=== PATIENT | male | born 1990 | race Caucasian/White ===

== ENCOUNTER 2016-09-21 08:49 | Emergency (ER) | payer BC ==
[2016-09-21 09:15] VITALS: BP 106/57
--- NOTE | 2016-09-21 09:24 | UC ---
Throat Pain/Nasal Cyril HPI - HPI Summary HPI Summary: ST, nasal congestion, cough, sinus pressure x 4 days. - History of Current Complaint Chief Complaint: UCRespiratory Stated Complaint: COUGH,SINUS Time Seen by Provider: 09/21/16 09:23 Hx Obtained From: Patient Onset/Duration: Gradual Onset, Lasting Days, Still Present Severity: Moderate Pain Intensity: 0 Pain Scale Used: 0-10 Numeric Cough: Nonproductive Associated Signs & Symptoms: Positive: Dysphagia, Sinus Discomfort, Nasal Discharge. Negative: Fever, Vomiting, Rash Related History: Smoking - Epiglottits Risk Factors Epiglottis Risk Factors: Negative - Allergies/Home Medications Allergies/Adverse Reactions: Allergies Allergy/AdvReac Type Severity Reaction Status Date / Time No Known Allergies Allergy Verified 09/21/16 08:57 Home Medications: Home Medications Allery Med 1 tab PO DAILY 09/21/16 [History Confirmed 09/21/16] Dextromethorphan-Phenylephrine [Day Time Multi-Symptom Co 10-5-325 mg] 1 cap PO Q6H PRN 09/21/16 [History Confirmed 09/21/16] PMH/Surg Hx/FS Hx/Imm Hx Previously Healthy: Yes - Surgical History Surgical History: Yes Surgery Procedure, Year, and Place: right leg surgery, verónica in place - Family History Known Family History: Positive: Other - both parents alive and well, mat GF due to "old age", alcohol Negative: Cardiac Disease, Hypertension, Diabetes - Social History Occupation: Employed Full-time Alcohol Use: None Substance Use Type: Marijuana Substance Use Comment - Amount & Last Used: 1-2 week Smoking Status (MU): Heavy Every Day Tobacco Smoker Type: Cigarettes, Smokeless Tobacco Amount Used/How Often: 1/2 ppd Length of Time of Smoking/Using Tobacco: 7-8 YRS Have You Smoked in the Last Year: Yes - Immunization History Most Recent Influenza Vaccination: none Review of Systems Constitutional: Negative Skin: Negative Eyes: Negative ENT: Sore Throat, Nasal Discharge, Other - sinus tenderness Respiratory: Cough Cardiovascular: Negative Gastrointestinal: Negative Neurovascular: Negative Musculoskeletal: Negative Neurological: Negative Psychological: Negative All Other Systems Reviewed And Are Negative: Yes Physical Exam Triage Information Reviewed: Yes Appearance: No Pain Distress, Well-Nourished, Ill-Appearing Vital Signs: Initial Vital Signs Temp 99 F 09/21/16 08:52 Pulse 79 09/21/16 08:52 Resp 15 09/21/16 08:52 BP 106/57 09/21/16 08:52 Pulse Ox 99 09/21/16 08:52 Vital Signs Reviewed: Yes Eyes: Positive: Conjunctiva Clear ENT: Positive: Hearing grossly normal, Pharyngeal erythema, TMs normal. Negative: Tonsillar swelling, Tonsillar exudate, Muffled/hoarse voice Neck: Positive: Supple, Nontender, No Lymphadenopathy Respiratory: Positive: Chest non-tender, Lungs clear, Normal breath sounds, No respiratory distress Cardiovascular: Positive: RRR, No Murmur, Pulses Normal, Brisk Capillary Refill Abdomen Description: Positive: Nontender, Soft. Negative: Distended, Guarding Bowel Sounds: Positive: Present Musculoskeletal: Positive: Strength Intact, ROM Intact Neurological: Positive: Alert, Muscle Tone Normal Psychological Exam: Normal Skin Exam: Normal Throat Pain/Nasal Course/Dx - Differential Dx/Diagnosis Differential Diagnosis/HQI/PQRI: Influenza, Otitis Media, Pharyngitis, Sinusitis , URI Provider Diagnoses: sinusitis. tobacco abuse disorder Discharge - Discharge Plan Condition: Stable Disposition: HOME Prescriptions: Amoxicillin (*) [Amoxicillin 875 MG (*)] 875 mg PO BID #20 tab Patient Education Materials: Sinusitis (ED) Forms: *Work Release Referrals: [facility] [place] [facility] [Outside] - As Soon As Possible (call this number to get a primary care provider ) No Primary Care Phys,NOPCP [Primary Care Provider] -
== END 2016-09-21 10:06 | disposition home or self-care (01) ==
LOC: UCCORT 08:49
DX: J32.9 Chronic sinusitis, unspecified (principal); F12.90 Cannabis use, unspecified, uncomplicated; F17.210 Nicotine dependence, cigarettes, uncomplicated
CPT/HCPCS: 99212; G0463